=== PATIENT | female | born 1950 | race African-American/Black ===

== ENCOUNTER 2016-07-19 14:29 | Emergency (ER) | payer OTHER ==
[~2016-07-19] VITALS: Ht 157.5 cm; Wt 113.4 kg
--- NOTE | ~2016-07-19 | EKG ---
[address] [place] [address] ELECTROCARDIOGRAM REPORT Name: FIDELINA HARMAN Room #: DEP TABITHA Shipman#: [id number] Admission: 07/19/16 Attend Phys: Discharge: 07/19/16 Date of : 46 Report #: [id number] THIS REPORT FOR: //name// [facility] ED Test Date: 2016-07-19 Test Time: 14:50:42 Pat Name: FIDELINA HARMAN Department: Room: Gender: F Junior Software Developer: : 1950 Requested By: [place] Order Number: [id number] MD: Gerardo Lezama Measurements Intervals [place] Rate: 66 P: 62 LA: 167 QRS: -16 QRSD: 90 T: 49 QT: 427 QTc: 448 Interpretive Statements Sinus rhythm Nonspecific ST segment abnormality Compared to ECG 05/16/2016 13:55:44 No significant change was found Electronically Signed On 07-21-2016 7:39:41 CDT by Gerardo Lezama [email or web address] <ELECTRONICALLY SIGNED> By: Gerardo Lezama MD, [facility] 07/21/16 0739 1450 1450 Gerardo Lezama MD, FACC /EPI
[~2016-07-19 14:29] MED LIST: CARVEDILOL12.5 MG PO; LANTUS100 UNIT/M SUBQ; LEVOTHYROXINE 0.1 MG PO; NOVOLOG100 UNIT/1 SUBQ; ZESTORETIC 20-1 EAC3 PO
[2016-07-19 15:07] LABS: ABSOLUTE NEUTROPHILS 4.5 thou/uL (1.4-8.2); BASOPHILS 0.6 % (0.0-2.0); EOSINOPHILS 2.3 % (0.0-3.0); HEMATOCRIT 38.7 % (37.0-47.0); HEMOGLOBIN 12.6 gm/dL (12.0-15.0); MCH 25.2 pg (26.0-34.0); MCHC 32.6 g/dL (28.0-37.0); MCV 77.2 fL (80.0-100.0); MONOCYTES 11.5 % (1.0-8.0); PLATELET COUNT 259 thou/uL (150-400); POLYS 66.6 % (36.0-66.0); RBC 5.01 mil/uL (4.20-5.00); RDW 14.6 % (10.5-14.5); WBC 6.8 thou/uL (4.0-11.0)
[2016-07-19 15:08] LABS: MANUAL DIFF NO
[2016-07-19 15:14] LABS: ANION GAP 8 mmol/L (7-16); BUN 24 mg/dL (7-18); CALCIUM 9.2 mg/dL (8.5-10.1); CHLORIDE 101 mmol/L (98-107); CO2 28 mmol/L (21-32); CREATININE 1.1 mg/dL (0.6-1.0); GLUCOSE 68 mg/dL (74-106); POTASSIUM 3.9 mmol/L (3.5-5.1); SODIUM 137 mmol/L (136-145)
[2016-07-19 15:21] LABS: ALBUMIN 3.2 g/dL (3.4-5.0); ALKALINE PHOSPHATASE 121 U/L (46-116); APTT 25.8 Seconds (24.5-32.8); PROTIME 10.4 Seconds (9.3-11.4); SGOT 32 U/L (15-37); SGPT 29 U/L (30-65); TOTAL BILIRUBIN 0.4 mg/dL (<0.1-1.0); TOTAL PROTEIN 8.2 g/dL (6.4-8.2); TROPONIN-I < 0.04 ng/mL (<0.04-0.07)
[2016-07-19 15:32] LABS: URINE BILIRUBIN NEGATIVE (Negative); URINE BLOOD TRACE (Negative); URINE COLOR YELLOW; URINE GLUCOSE-RANDOM* NEGATIVE (Negative); URINE KETONES NEGATIVE (Negative); URINE LEUKOCYTES-REFLEX 1+ (Negative); URINE PROTEIN (DIPSTICK) 1+ (Negative); URINE UROBILINOGEN 0.2 E.U./dl (0.2-1.0)
[2016-07-19 15:44] LABS: CASTS None Seen /LPF (None Seen); CRYSTALS None Seen /LPF (None Seen); SQUAMOUS 0-3 Few /LPF (0-3); URINE RBC 0-2 Rare /HPF (0-2); URINE WBC-REFLEX 0-5 Rare /HPF (0-5)
[2016-07-19] MEDS ORDERED: ATORVASTATIN CA40 MG PO (16:14)
[2016-07-19] MEDS ORDERED: ASPIR 8181 MG PO (16:15)
== END 2016-07-19 17:23 | disposition home or self-care (01) ==
LOC: ER 14:29
PROVIDERS: Emergency Medicine
DX: E16.2 Hypoglycemia, unspecified (principal); I10 Essential (primary) hypertension; E11.9 Type 2 diabetes mellitus without complications; E03.9 Hypothyroidism, unspecified; E78.5 Hyperlipidemia, unspecified; Z85.3 Personal history of malignant neoplasm of breast; Z87.891 Personal history of nicotine dependence